=== PATIENT | female | born 1965 | race Caucasian/White ===

== ENCOUNTER 2016-07-15 22:16 | Inpatient (IN) | payer OTHER ==
[~2016-07-15] VITALS: Ht 154.9 cm; Wt 71.2 kg
[~2016-07-15 22:16] MED LIST: HYDROCHLOROTH12.5 M2 PO
--- NOTE | 2016-07-15 22:25 | NUR ---
EKG IN PROGRESS.
--- NOTE | 2016-07-15 22:39 | NUR ---
MSE COMPLETED BY DR BARRIENTOS
[2016-07-15 23:08] LABS: BASOPHIL % 0.2 % (0-2)
[2016-07-15 23:11] LABS: PLATELET COUNT 69 x10^3mcL (130-400); RED CELL DISTRIBUTION WIDTH 17.4 % (11.5-14.5)
[2016-07-15 23:22] LABS: CALCIUM 10.5 mg/dL (8.5-10.1); CARBON DIOXIDE 27.5 mmol/L (21-32); CHLORIDE SERUM 100 mmol/L (98-107); CREATININE SERUM 0.7 mg/dL (0.6-1.0); GFR1 > 60 mL/min; GLUCOSE SERUM 129 mg/dL (74-106); POTASSIUM SERUM 3.6 mmol/L (3.5-5.1); SODIUM SERUM 135 mmol/L (136-145)
[2016-07-15 23:27] LABS: ALKALINE PHOSPHATASE 109 U/L (46-116); ALT/SGPT 16 U/L (14-59); AST/SGOT 19 U/L (15-37); BILIRUBIN TOTAL 0.96 mg/dL (0.20-1.00); MAGNESIUM 1.9 mg/dL (1.8-2.4); TOTAL PROTEIN, SERUM 8.2 g/dL (6.4-8.2)
--- NOTE | 2016-07-15 23:56 | NUR ---
PT LAYING IN GURNEY IN POSITION OF COMFORT, RESP EVEN AND UNLABORED, NO DISTRESS NOTED
--- NOTE | 2016-07-16 00:38 | NUR ---
REPORT CALLED TO TAO ALBERTS TO ASSUME CARE OF PT
[2016-07-16 00:57] LABS: T3 TOTAL 1.24 ng/mL
[2016-07-16 01:00] LABS: FREE T4 0.97 ng/dL (0.76-1.46); FREE THYROXINE INDEX 2.8 ug/dL (1.4-4.5); T4(THYROXINE) 9.1 ug/dL (4.7-13.3)
[2016-07-16 01:33] LABS: PHOSPHOROUS 3.1 mg/dL (2.5-4.9)
[2016-07-16 01:56] LABS: CHOLESTEROL/HDL RATIO 2.7
--- NOTE | 2016-07-16 02:00 | NUR ---
RECEIVED PT FROM ER NURSE. PT AOX4. TELE 21, NSR WITH BBB. HR 76. DENIES CP. REPORTS SOME PRESSURE. PULSES GOOD, NO EDEMA NOTED. LUNG SOUNDS CLEAR, ON RA. DENIES SOB/ DIFFICULTY BREATHING. BOWEL SOUNDS ACTIVE. VOIDS FREELY. PT AMBULATORY, BRP. SKIN INTACT. IV IN R. HAND, INTACT AND PATENT. BED IN LOWEST POSITION. CALL LIGHT WITHIN REACH. WILL CONTINUE TO MONITOR.
[2016-07-16 02:16] VITALS: BP 110/54
--- NOTE | 2016-07-16 04:00 | NUR ---
PT RESTING IN BED. RR EVEN AND UNLABORED. NO ACUTE DISTRESS NOTED. BED IN LOWEST POSITION. CALL LIGHT WITHIN REACH. WILL CONTINUE TO MONITOR.
[2016-07-16 06:03] VITALS: BP 111/61
[2016-07-16 06:32] LABS: BASOPHIL % 0.2 % (0-2)
[2016-07-16 06:46] LABS: microscopic required? YES; urine erythrocyte NEGATIVE (NEGATIVE)
[2016-07-16 06:46] LABS: PLATELET COUNT 70 x10^3mcL (130-400); RED CELL DISTRIBUTION WIDTH 17.1 % (11.5-14.5)
[2016-07-16 07:13] LABS: CALCIUM 10.5 mg/dL (8.5-10.1); CHLORIDE SERUM 102 mmol/L (98-107); CREATININE SERUM 0.5 mg/dL (0.6-1.0); GFR1 > 60 mL/min; GLUCOSE SERUM 114 mg/dL (74-106); MAGNESIUM 1.9 mg/dL (1.8-2.4); PHOSPHOROUS 3.5 mg/dL (2.5-4.9); POTASSIUM SERUM 3.7 mmol/L (3.5-5.1); SODIUM SERUM 136 mmol/L (136-145)
--- NOTE | 2016-07-16 07:45 | NUR ---
PATIENT AOX4, DENIES HEADACHE AT THIS TIME, DENIES NUMBNESS/TINGLING, DENIES FEELING WEAK. TELE [address], DENIES CP OR PALPITATION. LUNGS CTA, NO RESP DISTRESS NOTED ON RA, BREATHING EVEN AND UNLABORED. PERIPHERAL PULSES PALPABLE, NO EDEMA. BOWEL SOUNDS ACTIVE, LAST BM YESTERDAY, ABD SOFT. SKIN INTACT, IV ACCESS TO RT HAND PATENT AND SITE WNL. CALL LIGHT WITHIN REACH.
[2016-07-16 08:12] LABS: AMPHETAMINE QUAL UR NONE DETECTED (NEG <=1000)
[2016-07-16 09:25] VITALS: BP 119/49
--- NOTE | 2016-07-16 12:32 | NUR ---
ECHOCARDIOGRAM COMPLETED
[2016-07-16 12:51] VITALS: BP 121/56
--- NOTE | 2016-07-16 13:30 | NUR ---
PATROL SUPERVISOR REPORTS PATIENT TEMP NOW 99.7 FROM 102 AFTER COOLING MEASURES TAKEN. WILL CONT TO MONITOR.
[2016-07-16 18:05] VITALS: BP 114/59
--- NOTE | 2016-07-16 18:55 | NUR ---
PATIENT DENIES CP, DIZZINESS, OR HEADACHE. STATES FEELING GOOD. NO SIGNFICANT CHANGE IN CONDITION AND NO ACUTE DISTRESS NOTED. WILL CONT TO MONITOR AND ENDORSE TO NOC NURSE.
--- NOTE | 2016-07-16 19:30 | NUR ---
PT IS AAO X4 AND [place] SPEAKING ONLY. DENIES ANY PAIN AT THIS TIME. LUNG SOUNDS ARE CTA ON RA. BOWEL SOUNDS ACTIVE, LAST BM WAS 07-15-16. ON TELE WITH SINUS RHYTHM WITH BUNDLE BRANCH BLOCK. PT IS SALINE LOCK ON RH. BED IN LOWEST POSITION AND CALL LIGHT IS WITHIN REACH. WILL CONTINUE TO MONITOR.
[2016-07-16 21:23] VITALS: BP 128/63
--- NOTE | 2016-07-17 03:00 | NUR ---
PT IS SLEEPING. NO ACUTE DISTRESS NOTED. BED IN LOWEST POSITION AND CALL LIGHT WITHIN REACH. WILL CONTINUE TO MONITOR.
[2016-07-17 06:02] VITALS: BP 114/54
[2016-07-17 06:12] LABS: RED BLOOD CELLS 3.72 M/mm3 (4.10-5.10)
[2016-07-17 06:43] LABS: CALCIUM 10.8 mg/dL (8.5-10.1); CARBON DIOXIDE 27.4 mmol/L (21-32); CHLORIDE SERUM 105 mmol/L (98-107); CREATININE SERUM 0.6 mg/dL (0.6-1.0); GFR1 > 60 mL/min; GLUCOSE SERUM 111 mg/dL (74-106); POTASSIUM SERUM 3.9 mmol/L (3.5-5.1); SODIUM SERUM 139 mmol/L (136-145)
--- NOTE | 2016-07-17 07:05 | NUR ---
NURSING CO-SIGN THE DOCUMENTATION ENTERED BY THE RN HAS BEEN REVIEWED. REVIEWED/CO-SIGNED BY: Vandana Michael DOCUMENTATION DONE BY: BUCK GARCIA
[2016-07-17 07:10] LABS: BASOPHIL % 0 % (0-2); PLATELET COUNT 76 x10^3mcL (130-400)
[2016-07-17 07:16] LABS: TOTAL IRON BINDING CAPACITY 312 ug/dL (250-450)
[2016-07-17 07:17] LABS: IRON 19 ug/dL (50-170)
--- NOTE | 2016-07-17 07:40 | NUR ---
PT RECEIVED AAOX4, CONVERSING WELL IN FULL SENTENCES. RESP EVEN AND UNLABORED ON RA. DENIES ANY SOB OR COUGH. TELE #21, SR WITH BBB, DENIES ANY CP OR PRESSURE. IV ON RHAND INTACT, SALINE LOCKED. ABD ROUND/SOFT WITH ACTIVE BS IN ALL QUADS. DENIES ANY VOIDING COMPLAINTS. DENIES ANY PAIN OR DISCOMFORT AT THIS TIME. CALL LIGHT WITHIN REACH.
[2016-07-17 09:40] VITALS: BP 113/53
[2016-07-17 09:48] VITALS: BP 113/53
[2016-07-17] MEDS ORDERED: FERROUS SULFAT325 M2 PO (11:48)
[2016-07-17] MEDS ORDERED: LEADER C1 TAB PO (11:49)
[2016-07-17] MEDS ORDERED: IBUPROFEN400 MG PO (11:50)
--- NOTE | 2016-07-17 12:40 | NUR ---
PT TAKEN DOWNSTAIRS FOR STRESS ECHO VIA BED.
[2016-07-17 14:00] VITALS: BP 123/65
--- NOTE | 2016-07-17 14:07 | NUR ---
STRESS ECHO COMPLETED
--- NOTE | 2016-07-17 15:55 | NUR ---
PT C/O MILD HEADACHE 05/04, MEDICATED WITH TYLENOL ORDERED PRN, SEE EMAR.
--- NOTE | 2016-07-17 17:15 | NUR ---
DR DAVIES AT BEDSIDE TO DISCUSS PENDING DISCHARGE WITH PATIENT. ALL QUESTIONS ADDRESSED AT THIS TIME.
[2016-07-17 17:22] VITALS: BP 123/65
--- NOTE | 2016-07-17 17:45 | NUR ---
IV BY SAP BUSINESS ANALYST UNDER INSTRUCTOR SUPERVISION. PT TOLERATED WELL WITHOUT COMPLAINTS. TELEMETRY RETURNED. WRITTEN AND VERBAL DISCHARGE INSTRUCTIONS DISCUSSED WITH PATIENT. VERBALIZED UNDERSTANDING OF TEACHINGS GIVEN.
[2016-07-18 08:41] LABS: TRANSFERRIN 232 mg/dL (200-370)
== END 2016-07-17 17:57 | disposition home or self-care (01) | DRG 205 ==
LOC: ED 22:16 → DU 23:59
PROVIDERS: Emergency Medicine; Family Medicine; ADMIT Family Medicine
DX: M94.0 Chondrocostal junction syndrome [Tietze] (principal); N17.0 Acute kidney failure with tubular necrosis; I10 Essential (primary) hypertension; D64.9 Anemia, unspecified; Z68.29 Body mass index [BMI] 29.0-29.9, adult; D69.6 Thrombocytopenia, unspecified; Z82.3 Family history of stroke; Z82.49 Family history of ischemic heart disease and other diseases of the circulatory system; Z84.89 Family history of other specified conditions
CPT/HCPCS: 83880; 84439; 94150; J7030; Q0092